=== PATIENT | male | born 2005 | race Caucasian/White ===

== ENCOUNTER 2025-01-30 21:35 | Observation (INO) ==
[2025-01-30] MEDS ORDERED: VANCOMYCIN CONSULT ACTIVE PRN (21:47)
--- NOTE | 2025-01-30 21:57 | Emergency Department Note ---
Impression & Plan Cellulitis of left elbow, Lymphangitis of upper extremity, Failure of outpatient treatment, Immunocompromised patient ED Provider Note NAME: MARJORIE MITCHELL AGE: 19 SEX: M : 2005 ARRIVES VIA: Walk-In INFORMANT: Patient ED PROVIDER(S): Cas Phoenix DO CHIEF COMPLAINT: Left elbow pain swelling and redness HPI: Patient is a 19-year-old male who presents to the ER for swelling and redness of the left elbow. He notes that he initially noticed the bump around his elbow around Thanksgiving. He notes it was red and he gradually got worse over the past several days. He notes over the past 24 hours the redness has significantly worsened and is streaking up to his armpit. He notes he had a cut as well but notes that this was old. Denies any dysuria, urgency or frequency. Has pain with movement of the elbow. No fevers. Was placed on Keflex and Bactrim yesterday but only took 1 days worth of antibiotics. ADDITIONAL HISTORY OBTAINED: Per HPI Chronic Medical/Social Conditions Affecting Care: Per HPI PAST MEDICAL HISTORY:See Below PAST SURGICAL HISTORY:See Below FAMILY HISTORY:See Below SOCIAL HISTORY:See Below HOME MEDICATIONS:See Below ALLERGIES:See Below VITALS:See Below PHYSICAL EXAMINATION: GENERAL: Sitting up in bed, alert, well appearing, well nourished, no distress, non-toxic EYE EXAM: normal conjunctiva. OROPHARYNX: no exudate, no erythema, lips, buccal mucosa, and tongue normal and mucous membranes are moist NECK: supple, no nuchal rigidity, no adenopathy, non-tender LUNGS: Clear to auscultation. Normal chest wall mechanics HEART: no murmurs, S1 normal and S2 normal ABDOMEN: abdomen soft, non-tender, normo-active bowel sounds, no masses, no rebound or guarding. UPPER EXTREMITIES: Significant erythema and swelling around the left elbow and streaking up to the armpit. Fullness and erythema over the medial aspect. Flexion extension is intact with mild to moderate amount of pain. LOWER EXTREMITIES: No pitting edema. NEURO EXAM: Normal sensorium, cranial nerves II-XII grossly intact, normal speech, no gross weakness of arms, no gross weakness of legs. MEDICAL DECISION MAKING: Patient is a 19-year-old male who presents ER for the above-stated complaint. IV was established and blood work was obtained. Labs show a leukocytosis of 14,000. No significant anemia. BMP along with LFTs, bilirubin, and lipase was unremarkable. Pro-Jeovany 0.14. Cultures were obtained. Patient was given IV Rocephin and IV vancomycin. He was updated at bedside. Discussed case with hospitalist for further evaluation management and treatment. Discussed with orthopedics initially and they recommended admission to the hospitalist and they will evaluate. Consults/Care Managements Discussions: Per MDM Triage Nursing notes reviewed. Limited review of prior medical records performed Vital Signs: reviewed and remarkable for no significant abnormalities Differential diagnosis: Cellulitis, abscess, MRSA infection, DVT, necrotizing fasciitis, dermatitis, drug eruption, allergic reaction, as well as other pathologies. ER treatment provided: See below Diagnostics interpreted by me include EKG and cardiac monitoring as listed below: -Cardiac Monitoring: An order was placed for continuous cardiac monitoring. The monitor shows a rate of 101 with sinus rhythm. -ECG: none -Laboratory studies:Interpreted by me as stated above in MDM and shown below. Imaging studies: Xrays: As interpreted by me: X-rays of the elbow show no acute fracture or dislocation CTs show: none Procedures:none Critical Care: None Past Med/Surg History Problem List (Updated 01/31/25 @ 00:43 by Cas Phoenix DO) Immunocompromised patient (Acute) Failure of outpatient treatment (Acute) Lymphangitis of upper extremity (Acute) Cellulitis of left elbow (Acute) Medical History Primary sclerosing cholangitis Ulcerative colitis Social History Smoking Status: Never smoker Preferred Language: American Feels Safe at Home: Yes Allergies Allergies Allergy/AdvReac Type Severity Reaction Status Date / Time sulfamethoxazole AdvReac Unknown CONTRAINDICATED Verified 01/30/25 22:18 [From Bactrim] WITH OTHER MEDICATIONS trimethoprim [From Bactrim] AdvReac Unknown CONTRAINDICATED Verified 01/30/25 22:18 WITH OTHER MEDICATIONS Home Meds Home Medications Medication Instructions Recorded Confirmed infliximab-dyyb 100 mg intravenous 0 mg IV .Q8 WKS 01/30/25 01/30/25 solution (Inflectra) Previous Rx's Medication Instructions Recorded cephalexin 500 mg capsule 500 mg PO QID 7 days #28 caps 01/29/25 tramadol 50 mg tablet 50 mg PO Q4H PRN pain #15 tabs 01/29/25 Results & Data (ED) Vital Signs Vital Signs - 24 hr 01/30/25 21:37 01/30/25 21:48 01/30/25 21:48 Temperature 36.7 C Temperature Source Temporal Artery Scan Pulse Rate 108 H 99 H Pulse Rhythm Regular Respiratory Rate 18 20 Respiratory Effort / Characteristics Non-Labored Non-Labored Respiratory Depth Normal Normal Blood Pressure 119/67 Blood Pressure Mean 84 Pulse Oximetry 96 98 Oxygen Delivery Method Room Air Room Air Sepsis Recent Fever Within 48 Hours No Sepsis New/Unexplained Change in Mental Status No Sepsis Action Taken by Nursing No Action Required 01/30/25 22:13 01/30/25 22:17 01/30/25 22:30 Temperature Temperature Source Pulse Rate 97 H 95 H 92 H Pulse Rhythm Respiratory Rate 20 18 Respiratory Effort / Characteristics Respiratory Depth Blood Pressure 121/68 112/71 Blood Pressure Mean 88 88 Pulse Oximetry 97 99 Oxygen Delivery Method Room Air Sepsis Recent Fever Within 48 Hours Sepsis New/Unexplained Change in Mental Status Sepsis Action Taken by Nursing Laboratory Data 01/30/25 21:56 01/30/25 21:56 Lab Results 01/30/25 Range/Units 21:56 WBC 14.16 H (4.8-10.8) K/ul RBC 4.52 L (4.70-6.10) M/uL Hgb 13.8 L (14.0-18.0) g/dL Hct 41.3 L (42.0-52.0) % MCV 91.4 (80.0-100.0) fL MCH 30.5 (25.0-34.0) pg MCHC 33.4 (32.0-36.0) g/dL RDW Std Deviation 41.5 (36.4-46.3) fL RDW Coeff of Alena 12.5 (11.5-14.5) % Plt Count 259 (130-400) K/uL MPV 10.1 (9.4-12.4) fL Immature Gran % (Auto) 0.4 % Neut % (Auto) 69.3 % Lymph % (Auto) 20.3 % [place] % (Auto) 7.6 % Eos % (Auto) 1.8 % Baso % (Auto) 0.6 % Neut # (Auto) 9.82 H (1.40-6.50) K/uL Lymph # (Auto) 2.87 (1.20-3.40) K/uL [place] # (Auto) 1.08 H (0.11-0.59) K/uL Eos # (Auto) 0.26 (0.00-0.50) K/uL Baso # (Auto) 0.08 (0.00-0.20) K/uL Immature Gran # (Auto) 0.05 (0.01-0.20) K/uL Sodium 140 (136-145) mmol/L Potassium 3.6 (3.5-5.1) mmol/L Chloride 107 (98-107) mmol/L Carbon Dioxide 23 (21-32) mmol/L Anion Gap 10 (3-11) BUN 15 (6-23) mg/dl Creatinine 0.94 (0.6-1.4) mg/dl Est Cr Clr Drug Dosing 130.5 ml/min eGFR 119.76 BUN/Creatinine Ratio 16.0 (10-20) Glucose 86 (70-99(Fasting)) mg/dl Calcium 8.8 (8.6-10.3) mg/dl Total Bilirubin 0.4 D (0.2-1.0) mg/dl AST 18 (13-39) U/L ALT 16 (7-52) U/L Alkaline Phosphatase 77 (34-104) U/L C-Reactive Protein 8.32 H (0-0.5) mg/dl Total Protein 8.3 (6.0-8.3) gm/dl Albumin 4.1 (3.4-5.0) gm/dl Globulin 4.2 H (2.5-4.0) gm/dl Albumin/Globulin Ratio 1.0 (0.9-2) Lipase 24 (11-82) U/L Procalcitonin 0.14 (0-0.5) ng/ml Administered Medications Discontinued Medications Acetaminophen (Acetaminophen 325 Mg Tab) 650 mg PO NOW STA Stop: 01/30/25 23:19 Last Admin: 01/30/25 23:37 Dose: 650 mg Documented By: JAMES Ceftriaxone Sodium (Rocephin) 2,000 mg in 50 mls @ 100 mls/hr IV NOW STA Stop: 01/30/25 22:16 Last Infusion: 01/30/25 22:46 Dose: Infused Documented By: Admin: 01/30/25 22:10 Dose: 100 mls/hr Documented By: MIGUEL ANGEL Vancomycin HCl 1,500 mg/ (Sodium Chloride) 530 mls @ 200 mls/hr IV NOW ONE Stop: 01/31/25 00:25 Last Admin: 01/30/25 22:38 Dose: 200 mls/hr Documented By: ECS Sodium Chloride (Nss) 1,000 mls @ 999 mls/hr IV .Q1H1M ONE Stop: 01/30/25 23:46 Last Admin: 01/30/25 23:04 Dose: 999 mls/hr Documented By: ECS Imaging Data Radiologist's Impression: Elbow X-Ray 01/30/25 21:49 Exam(s): XR LEFT ELBOW, 3+ views EXAM: XR Left Elbow Complete, 3 or More Views CLINICAL HISTORY: l elbow infection. TECHNIQUE: Frontal, lateral and oblique views of the left elbow. COMPARISON: No relevant prior studies available. FINDINGS: Bones/joints: No radiographic evidence for joint effusion. No acute osseous abnormality or abnormal alignment. No evidence for cortical destruction. Soft tissues: Soft tissue fullness suggested posteriorly. No radiopaque foreign body or subcutaneous emphysema. IMPRESSION: Soft tissue fullness suggested posteriorly. No radiopaque foreign body or subcutaneous emphysema. No acute osseous abnormality. Electronically signed by: Rolo Means MD 01/30/25 22:27 PM Discharge Plan Visit Data Chief Complaint: Elbow Injury/Pain Stated Complaint: LT ELBOW SWELLING AND PAIN PAST WK, HERE YEST ED Provider: Cas Phoenix Discharge Problem: Cellulitis of left elbow, Lymphangitis of upper extremity, Failure of outpatient treatment, Immunocompromised patient Patient Disposition: Admitted As Inpatient Condition: Fair Discharge Instructions Interventions: ED Discharge Assessment Last Done: 01/31/25 00:03
[2025-01-30] MEDS: cefTRIAXone SODIUM 2,000 MG/50 ML BAG IV STA (22:10)
[2025-01-30 22:17] LABS: Hematocrit (blood only) 41.3 % (42.0-52.0); Hemoglobin 13.8 g/dL (14.0-18.0); Immature Granulocytes # (auto) 0.05 K/uL (0.01-0.20); Immature Granulocytes % (auto) 0.4 %; Mean Corpuscular Hemoglobin 30.5 pg (25.0-34.0); Mean Corpuscular Volume 91.4 fL (80.0-100.0); Platelet Count 259 K/uL (130-400); RDW Standard Deviation 41.5 fL (36.4-46.3); Red Blood Count 4.52 M/uL (4.70-6.10); White Blood Count 14.16 K/ul (4.8-10.8)
--- NOTE | 2025-01-30 22:28 | XRay Report ---
Exam(s): XR LEFT ELBOW, 3+ views EXAM: XR Left Elbow Complete, 3 or More Views CLINICAL HISTORY: l elbow infection. TECHNIQUE: Frontal, lateral and oblique views of the left elbow. COMPARISON: No relevant prior studies available. FINDINGS: Bones/joints: No radiographic evidence for joint effusion. No acute osseous abnormality or abnormal alignment. No evidence for cortical destruction. Soft tissues: Soft tissue fullness suggested posteriorly. No radiopaque foreign body or subcutaneous emphysema. IMPRESSION: Soft tissue fullness suggested posteriorly. No radiopaque foreign body or subcutaneous emphysema. No acute osseous abnormality. Electronically signed by: Rolo Means MD 01/30/25 22:27 PM
[2025-01-30] MEDS: VANCOMYCIN HCL 1,500 MG in SODIUM CHLORIDE 0.9% 500 ML IV ONE (22:38)
[2025-01-30 22:39] LABS: Alanine Aminotransferase 16.0 U/L (7-52); Albumin Globulin Ratio 1.0 (0.9-2); Albumin Level 4.1 gm/dl (3.4-5.0); Alkaline Phosphatase 77.0 U/L (34-104); Anion Gap 10.0 (3-11); Bilirubin,Total 0.4 mg/dl (0.2-1.0); Blood Urea Nitrogen 15.0 mg/dl (6-23); Calcium 8.8 mg/dl (8.6-10.3); Carbon Dioxide 23.0 mmol/L (21-32); Chloride 107.0 mmol/L (98-107); Creatinine Clr Calc Pharmacy 130.5 ml/min; Globulin 4.2 gm/dl (2.5-4.0); Glucose 86.0 mg/dl (70-99(Fasting)); Lipase 24.0 U/L (11-82); Potassium 3.6 mmol/L (3.5-5.1); Sodium 140.0 mmol/L (136-145); Total Protein 8.3 gm/dl (6.0-8.3)
--- NOTE | 2025-01-30 23:02 | History & Physical Report ---
Date of Service January 30, 2025 Assessment & Plan (1) Cellulitis of left elbow: (2) Lymphangitis of upper extremity: (3) Immunocompromised patient: (4) Failure of outpatient treatment: Plan Patient is a 19-year-old [employer] student with a history of ulcerative colitis, primary sclerosing cholangitis, immunosuppressed status given on infliximab. Patient presented to the ED 01/29 due to worsening elbow pain and redness since Thanksgiving in which he was discharged on both Bactrim (noncompliance) and Keflex (took 12/6 AM x1) after being given Rocephin x 1 in the ED. Patient returned to the ED 01/30 as the redness has doubled in 24 hours and now has streaking up his arm. He is being admitted for left upper extremity cellulitis, lymphadenitis, failing outpatient oral antibiotic treatment with an immunocompromised status requiring IV antibiotics. #L UE cellulitis/lymphangitis/immunocompromised status/failed outpt tx - Elbow XR revealed soft tissue swelling. WBC 12.11 -> 14.16, with neutrophil predominance. - low concern for septic joint given ROM WNL - borders of erythema marked with surgical marker on admission, follow - CRP and procal ordered - continue Rocephin and vancomycin started in ED - pain control with Tylenol and Toradol prn - follow blood cultures - trend CBC and BMP with vanco use #tachycardia - likely 2/2 demand with acute infection. Resolved with IVF. - EKG ordered - NSR with sinus arrhythmia, rate 85 - 1L NSS bolus followed by LR @ 80ml/hr x 1 #ulcerative colitis - on infliximab q8 weeks, is due for repeat infusion however defer with acute infection. VTE ppx: SCDs, low risk Dispo: med surg Admission and Anticipated Discharge Date Admission Date: 01/30/25 History of Present Illness Chief Complaint: elbow pain Primary Care Provider: [facility] Patient is a 19-year-old [employer] student with a history of ulcerative colitis, primary sclerosing cholangitis, immunosuppressed status given on infliximab. Patient presented to the ED 01/29 due to worsening elbow pain and redness since Thanksgiving in which he was discharged on both Bactrim and Keflex after being given Rocephin x 1 in the ED. Patient returned to the ED 01/30 as the redness has doubled in 24 hours and now has streaking up his arm. He is being admitted for left upper extremity cellulitis, lymphadenitis, failing outpatient oral antibiotic treatment with an immunocompromise status requiring IV antibiotics. Patient seen at bedside. He stated he noticed an initial bump on his elbow Thanks or the day after and did not think much of it. Over 1 week he had worsening redness however no pain. this week it became very painful and significantly red so he came into the ER on Saturday. He received Rocephin, Toradol, tramadol in the ED and was discharged on Bactrim and Keflex. He only took Keflex this morning as he remembered he had Bactrim before and his doctors from home told him not to take this as it is hard on his liver with his liver condition, so he did not take the Bactrim today. Patient also noticed he had a scab on his elbow several weeks ago however does not remember any trauma to the area, he stated it had white drainage before all of this began, denies any current drainage. He denies any animal bites. The red bump that started on was slightly beside the scab (more proximal and medial). He denies any fevers, chills, chest pain, shortness of breath, nausea, vomiting, diarrhea. he occasionally uses Alverto nicotine pouches however declines need for nicotine patch, denies any vaping use. He occasionally drinks alcohol, denies daily use. He does not take any home medications daily. He has an infliximab treatment every 8 weeks, it has been about 8 weeks since his most recent treatment and he is about due however sometimes goes several weeks past when he is due. He wishes to be full code. Borders of erythema marked at time of admission. Allergies Allergy/AdvReac Type Severity Reaction Status Date / Time sulfamethoxazole AdvReac Unknown CONTRAINDICATED Verified 01/30/25 22:18 [From Bactrim] WITH OTHER MEDICATIONS trimethoprim [From Bactrim] AdvReac Unknown CONTRAINDICATED Verified 01/30/25 22:18 WITH OTHER MEDICATIONS Home Medications Medication Instructions Recorded Confirmed Type cephalexin 500 mg capsule 500 mg PO QID 7 days #28 caps 01/29/25 01/30/25 Rx tramadol 50 mg tablet 50 mg PO Q4H PRN pain #15 tabs 01/29/25 01/30/25 Rx infliximab-dyyb 100 mg intravenous 0 mg IV .Q8 WKS 01/30/25 01/30/25 History solution (Inflectra) Past Med/Surg History Problem List (Updated 01/31/25 @ 00:43 by Cas Phoenix DO) Immunocompromised patient (Acute) Failure of outpatient treatment (Acute) Lymphangitis of upper extremity (Acute) Cellulitis of left elbow (Acute) Medical History Primary sclerosing cholangitis Ulcerative colitis Social History Smoking Status: Current some day smoker Hx Alcohol Use: Yes Alcohol type: hard liquor Hx Substance Use: No Preferred Language: Thai Communication Ability: Effective Manager Of Housekeeping Required: No Beliefs That Will Affect Care: None Current Living Situation: Other Current Living Situation Comment: Boarding at [facility] Feels Safe at Home: Yes Safety Concerns: Feels Safe At This Time Review of Systems 2 Review of Systems: see HPI Physical Exam 2 Physical Exam: The patient is awake, alert and oriented 3, well developed and well nourished, normocephalic and atraumatic, in no acute distress. Non-toxic appearing. HEENT- EOMI, mucous membranes moist. Hearing grossly intact. Heart-normal S1 and S2. No murmurs, rubs or gallops. Lungs-clear bilaterally, no respiratory distress, no accessory muscle use. Abdomen-normal bowel sounds and soft. No ascites noted. Non-tender. Extremities- no clubbing, cyanosis, or edema. L UE - Healing wound of medial posterior elbow with surrounding erythema streaking proximally and anteriorly. Warm to touch. Rheumatologic-normal range of motion. Psychiatric-normal affect. Results & Data Results & Data Vital Signs (Past 12 Hours) Vital Signs Temp Pulse Resp BP Pulse Ox O2 Del Method 01/30/25 22:30 92 H 18 112/71 99 Room Air 01/30/25 22:17 95 H 01/30/25 22:13 97 H 20 121/68 97 01/30/25 21:48 99 H 20 98 Room Air 01/30/25 21:37 36.7 C 108 H 18 119/67 96 Room Air Laboratory Results Reviewed CBC, CMP, Pro-Jeovany, lipase Ordered CRP Diagnostic Findings reviewed elbow XR Medications Administered ed - Rocephin 2G IV, vancomycin IV ECG Additional Comments: ordered Code Status & VTE Plan Code Status full code VTE Prophylaxis Plan VTE Prophylaxis will be ordered: Yes Supervising Physician Co-Signing Physician Notes Attending addendum: I have physically seen this patient, have supervised the UMA's activities, and agree with the H&P unless as otherwise noted. Assessment and Plan: The patient is a 19-year-old male [employer] student with past medical history including ulcerative colitis, primary sclerosing cholangitis, and immunosuppressed state on infliximab. He initially presented to the emergency department on 01/29 due to worsening elbow pain and redness, initially began on Thanksgiving. He was given ceftriaxone x 1 in the ED on 01/29, and then discharged on Bactrim and Keflex, of which he only took Keflex. He returned to the ED on 01/30 due to worsening redness and pain, and streaking up developing up his arm. Patient is being admitted to [facility] with upper extremity cellulitis and ascending lymphangitis, and failure of outpatient treatment. Left upper extremity cellulitis/ascending lymphangitis/immunocompromise state/failure of outpatient treatment- X-ray of left elbow reveals soft tissue swelling, no bone involvement. Ceftriaxone 2 g IV every 24 hours Vancomycin IV per pharmacokinetic monitoring Acetaminophen 650 mg by mouth every 6 hours as needed for mild pain or fever Toradol 15 mg IV every 6 hours as needed from breakthrough pain. Follow-up blood cultures Serial CBC with differential and basic metabolic panel Sinus tachycardia Reactive Hydration with LR at 80 mL/h x 1 L, and encourage oral hydration Optimize potassium Ulcerative colitis- Immunocompromised on infliximab No symptoms at this time PG Care Time/CCT Total # of Minutes Spent Total Time Spent with Patient: Total time spent is greater than 50% in coordination of care (as documented) at patient's floor/unit and/or counseling patient: Coding Level of Care Code 24809 INT INP/OBS CARE 75MIN Diagnoses Cellulitis of left elbow L03.114 Lymphangitis of upper extremity I89.1 Immunocompromised patient D84.9 Failure of outpatient treatment Z78.9
[2025-01-30] MEDS: SODIUM CHLORIDE 0.9% 1,000 ML IV ONE (23:04)
[2025-01-30] MEDS: ACETAMINOPHEN 325 MG TAB PO STA (23:37)
[2025-01-31] MEDS ORDERED: MELATONIN 3 MG TAB PO PRN (00:31)
[2025-01-31] MEDS ORDERED: ONDANSETRON INJ 2 MG/ML 2 ML VIAL IV PRN (00:31)
[2025-01-31] MEDS ORDERED: DOCUSATE SODIUM 100 MG CAP PO PRN (00:31)
[2025-01-31] MEDS ORDERED: VANCOMYCIN CONSULT ACTIVE PRN (00:31)
[2025-01-31] MEDS: KETOROLAC TROMETHAMINE 15 MG/ML VIAL IV PRN (00:54)
[2025-01-31] MEDS: LACTATED RINGER'S 1,000 ML IV SCH (00:55)
[2025-01-31] MEDS: VANCOMYCIN HCL 1,750 MG in SODIUM CHLORIDE 0.9% 500 ML IV SCH (05:16)
[2025-01-31 06:49] LABS: Hematocrit (blood only) 37.7 % (42.0-52.0); Hemoglobin 12.2 g/dL (14.0-18.0); Immature Granulocytes # (auto) 0.04 K/uL (0.01-0.20); Immature Granulocytes % (auto) 0.4 %; Mean Corpuscular Hemoglobin 30.3 pg (25.0-34.0); Mean Corpuscular Volume 93.5 fL (80.0-100.0); Platelet Count 190 K/uL (130-400); RDW Standard Deviation 43.4 fL (36.4-46.3); Red Blood Count 4.03 M/uL (4.70-6.10); White Blood Count 10.20 K/ul (4.8-10.8)
[2025-01-31 07:30] LABS: Alanine Aminotransferase 12.0 U/L (7-52); Albumin Globulin Ratio 1.1 (0.9-2); Albumin Level 3.6 gm/dl (3.4-5.0); Alkaline Phosphatase 60.0 U/L (34-104); Anion Gap 8.0 (3-11); Bilirubin,Total 0.5 mg/dl (0.2-1.0); Blood Urea Nitrogen 13.0 mg/dl (6-23); Calcium 8.5 mg/dl (8.6-10.3); Carbon Dioxide 24.0 mmol/L (21-32); Chloride 109.0 mmol/L (98-107); Creatinine Clr Calc Pharmacy 148.9 ml/min; Globulin 3.3 gm/dl (2.5-4.0); Glucose 87.0 mg/dl (70-99(Fasting)); Potassium 4.1 mmol/L (3.5-5.1); Sodium 141.0 mmol/L (136-145); Total Protein 6.9 gm/dl (6.0-8.3)
--- NOTE | 2025-01-31 08:27 | Hospitalist Progress Note ---
Date of Service January 31, 2025 Assessment & Plan (1) Cellulitis of left elbow: (2) Lymphangitis of upper extremity: (3) Immunocompromised patient: (4) Failure of outpatient treatment: Plan Patient is a 19-year-old [employer] student with a history of ulcerative colitis, primary sclerosing cholangitis, immunosuppressed status given on infliximab. Patient presented to the ED 01/29 due to worsening elbow pain and redness since Thanksgiving in which he was discharged on both Bactrim (noncompliance) and Keflex (took 12/6 AM x1) after being given Rocephin x 1 in the ED. Patient returned to the ED 01/30 as the redness has doubled in 24 hours and now has streaking up his arm. He is being admitted for left upper extremity cellulitis, lymphadenitis, failing outpatient oral antibiotic treatment with an immunocompromised status requiring IV antibiotics. #L UE cellulitis/lymphangitis/immunocompromised status/failed outpt tx - Elbow XR revealed soft tissue swelling. WBC 12.11 -> 14.16, with neutrophil predominance. Low concern for septic joint w ROM WNL CRP and procal ordered, CRP 8.3, procal 0.14 Blood cx pending from admission Continues on Ceftriaxone, Vancomycin in ER Benadryl x 1 for itchiness. Monitor for any respiratory/worsening issues but reports was on Vanco in the past Toradol, Tylenol for pain control Continued inpatient stay on antibiotics while monitoring blood cultures and if continued improvement can dc on PO abx in AM. #tachycardia - likely 2/2 demand with acute infection. Resolved with IVF. EKG w/ sinus arrhythmia, rate 85. Provided with IVF, can dc after current bag. No CP/SOB and HR now normalized w/ tx #ulcerative colitis - on infliximab q8 weeks, is due for repeat infusion however defer with acute infection. He reports he is to be getting an infusion this upcoming week VTE ppx: SCDs, low risk Dispo: continued inpatient stay on IV abx/monitoring blood cultures and hopeful dc AM 12/8 on PO abx if blood cx remain negative. Will need school note. Admission and Anticipated Discharge Date Admission Date: January 30, 2025 Subjective Evaluated this morning, doing well. Some redness/warmth/itchiness to face. Discussed benadryl but to alert if any respiratory symptoms. Redness/pain much improved. He notes he got medication last evening in the IV - will have nursing provide additional dose of toradol today. Discussed discharge disposition, he is to be getting his infusion for UC this upcoming week. Discussed given immunocompromised status would prefer additional 24hr of IV abx and can plan for dc early AM. Patient agreeable to plan. Review of Systems 2 Review of Systems: All systems reviewed & are unremarkable except as noted in HPI & below Physical Exam 2 Physical Exam: General: 19yo male resting in bed, NAD HEENT: slight redness to the face, no stridor or hoarseness Resp: clear bilaterally, no w/c/r, on room air CV: RRR, no significant m/r/g, pulses present GI: +BS, soft/NT ; no arango MSK/Neuro: moves all extremities, L elbow with scab, redness within markings, ROM intact but slightly decreased at the extremes, slight edema, no overt tenderness or fluctuance. no further streaking proximally Psych: AOx3, cooperative Results & Data Results & Data Vital Signs (Past 12 Hours) Vital Signs Temp Pulse Pulse Pulse Resp BP BP 01/31/25 07:08 36.3 C L 64 16 105/62 01/31/25 00:35 01/31/25 00:20 37.1 C 81 16 122/70 01/30/25 23:35 95 H 24 105/57 L 01/30/25 22:30 92 H 18 112/71 01/30/25 22:17 95 H 01/30/25 22:13 97 H 20 121/68 01/30/25 21:48 99 H 20 01/30/25 21:37 36.7 C 108 H 18 119/67 Pulse Ox O2 Del Method 01/31/25 07:08 98 Room Air 01/31/25 00:35 Room Air 01/31/25 00:20 99 Room Air 01/30/25 23:35 97 Room Air 01/30/25 22:30 99 Room Air 01/30/25 22:17 01/30/25 22:13 97 01/30/25 21:48 98 Room Air 01/30/25 21:37 96 Room Air Laboratory Results 01/31/25 06:35 01/31/25 06:35 CRP 8.3 Procal 0.14 Diagnostic Findings Elbow X-Ray 01/30/25 21:49 Exam(s): XR LEFT ELBOW, 3+ views EXAM: XR Left Elbow Complete, 3 or More Views CLINICAL HISTORY: l elbow infection. TECHNIQUE: Frontal, lateral and oblique views of the left elbow. COMPARISON: No relevant prior studies available. FINDINGS: Bones/joints: No radiographic evidence for joint effusion. No acute osseous abnormality or abnormal alignment. No evidence for cortical destruction. Soft tissues: Soft tissue fullness suggested posteriorly. No radiopaque foreign body or subcutaneous emphysema. IMPRESSION: Soft tissue fullness suggested posteriorly. No radiopaque foreign body or subcutaneous emphysema. No acute osseous abnormality. Electronically signed by: Rolo Means MD 01/30/25 22:27 PM PG Care Time/CCT Total # of Minutes Spent Total Time Spent with Patient: Total time spent is greater than 50% in coordination of care (as documented) at patient's floor/unit and/or counseling patient: Coding Level of Care Code 55544 SUB INP/OBS CARE 2/35MIN Diagnoses Cellulitis of left elbow L03.114 Lymphangitis of upper extremity I89.1 Immunocompromised patient D84.9 Failure of outpatient treatment Z78.9
[2025-01-31] MEDS: diphenhydrAMINE 50 MG/ML VIAL IV STA (08:31)
[2025-01-31] MEDS ORDERED: VANCOMYCIN HCL 1,000 MG in SODIUM CHLORIDE 0.9% 250 ML IV SCH (09:00)
--- NOTE | 2025-01-31 09:48 | Pharmacy Report ---
Pharmacy PK ABX Note - Date of Service January 31, 2025 - Assessment and Plan Assessment 19 year old M receiving vancomycin and ceftriaxone for treatment of left elbow cellulitis. History of ulcerative colitis on infliximab and primary sclerosing cholangitis, immunocompromised at baseline. Prescribed Bactrim (non-compliant) and Keflex after being seen in the ED on 01/29 and now worsening redness and streaking up the arm. Blood cultures pending. Renal function stable. Day #2 of antimicrobial therapy. Plan Vancomycin * Vanc 1500mg IV X 1 in the ED followed by a 1750mg dose this AM * Maintenance dose: 1250 mg IV every 8 hours * Regimen is predicted to achieve target AUC/GAURANG of 400-600 mg/L.hr * Trough tomorrow AM Pharmacy will continue to follow and will adjust dose/frequency as necessary. Thank you. Pharmacy has transitioned to AUC monitoring for vancomycin. AUC/GAURANG is the preferred PK/PD target and is associated with decreased risk of nephrotoxicity compared to traditional trough targets.
[2025-01-31] MEDS: VANCOMYCIN HCL 1,250 MG in SODIUM CHLORIDE 0.9% 250 ML IV SCH (14:51)
[2025-01-31] MEDS: cefTRIAXone SODIUM 2,000 MG/50 ML BAG IV SCH (20:28)
[2025-01-31] MEDS: diphenhydrAMINE Capsule 25 MG CAP PO PRN (22:28)
[2025-01-31 23:08] VITALS: RESP 16
[2025-01-31] MEDS: KETOROLAC TROMETHAMINE 15 MG/ML VIAL IV ONE (23:23)
--- NOTE | 2025-02-01 01:38 | Electrocardiogram Report ---
Test Reason : Blood Pressure : */* mmHG Vent. Rate : 85 BPM Atrial Rate : 85 BPM P-R Int : 160 ms QRS Dur : 94 ms QT Int : 344 ms P-R-T Axes : 48 59 40 degrees QTcB Int : 409 ms Normal sinus rhythm with sinus arrhythmia Normal ECG No previous ECGs available Confirmed by Anahy Momin (Neftali) on 02/01/2025 1:38:22 AM Referred By: REFERRED SELF Confirmed By: Anahy Momin
[2025-02-01 06:24] LABS: Hematocrit (blood only) 35.3 % (42.0-52.0); Hemoglobin 11.7 g/dL (14.0-18.0); Mean Corpuscular Hemoglobin 31.0 pg (25.0-34.0); Mean Corpuscular Volume 93.4 fL (80.0-100.0); Platelet Count 193 K/uL (130-400); RDW Standard Deviation 42.9 fL (36.4-46.3); Red Blood Count 3.78 M/uL (4.70-6.10); White Blood Count 8.95 K/ul (4.8-10.8)
[2025-02-01 06:40] LABS: Anion Gap 5.0 (3-11); Blood Urea Nitrogen 8.0 mg/dl (6-23); Calcium 8.8 mg/dl (8.6-10.3); Carbon Dioxide 27.0 mmol/L (21-32); Chloride 109.0 mmol/L (98-107); Creatinine Clr Calc Pharmacy 130.5 ml/min; Glucose 91.0 mg/dl (70-99(Fasting)); Potassium 4.4 mmol/L (3.5-5.1); Sodium 141.0 mmol/L (136-145)
[2025-02-01] MEDS: VANCOMYCIN LEVEL ONE (06:48)
[2025-02-01] MEDS: KETOROLAC TROMETHAMINE 15 MG/ML VIAL IV PRN (07:36)
--- NOTE | 2025-02-01 07:52 | Pharmacy Report ---
Pharmacy PK ABX Note - Date of Service February 01, 2025 - Assessment and Plan Assessment 02/01 * Vancomycin random level this AM ~9.3 mcg/ml - current regimen is predicted to achieve goal AUC/GAURANG therefore will continue same dose. 01/31 * 19 year old M receiving vancomycin and ceftriaxone for treatment of left elbow cellulitis. History of ulcerative colitis on infliximab and primary sclerosing cholangitis, immunocompromised at baseline. Prescribed Bactrim (non-compliant) and Keflex after being seen in the ED on 01/29 and now worsening redness and streaking up the arm. Blood cultures pending. Renal function stable. * Day #2 of antimicrobial therapy. Plan Vancomycin * Continue 1250 mg iv q 8 hours Pharmacy will continue to follow and will adjust dose/frequency as necessary. Thank you. Pharmacy has transitioned to AUC monitoring for vancomycin. AUC/GAURANG is the preferred PK/PD target and is associated with decreased risk of nephrotoxicity compared to traditional trough targets.
[2025-02-01] MEDS: ACETAMINOPHEN 325 MG TAB PO PRN (12:39)
--- NOTE | 2025-02-01 15:55 | Hospitalist Progress Note ---
Date of Service February 01, 2025 Assessment & Plan (1) Cellulitis of left elbow: Plan: Left elbow area cellulitis has responded to Rocephin and vancomycin, day 3. Erythema has receded from outline drawn by nursing staff on admission (2) Olecranon bursitis, left elbow: Plan: Fluctuant very tender area overlying the left olecranon bursa. It appears incision and drainage is indicated. Orthopedic consultation requested (3) Immunocompromised patient: Plan: He takes medication for his ulcerative colitis history that has resulted in an immunocompromised state. Plan Hopeful discharge to home in 1 to 2 days pending orthopedic evaluation and subsequent incision and drainage of left olecranon bursitis. Admission and Anticipated Discharge Date Admission Date: February 01, 2025 Subjective Cellulitic erythema involving the left elbow area has receded but he has what appears to be olecranon bursitis that would benefit from incision and drainage procedure. Orthopedic consultation requested and pending. He remains on intravenous Rocephin and cefepime, day 3. He is admitted from observation status. Blood cultures obtained on admission remain negative. Review of Systems 2 Review of Systems: Constitutionalno fever or chills ENTno blurred vision, no double vision, no epistaxis, no sore throat Respiratoryno cough, no wheezing, no shortness of breath Cardiacno palpitations, no chest pain, no syncope Raissa nausea, vomiting, diarrhea, melena, hematochezia GUno urinary retention, no urinary incontinence, no dysuria, no hematuria Musculoskeletalleft elbow discomfort and limited range of motion. No muscle tenderness Skinno bruising, no rashes, no pruritus Neurono isolated weakness, no paresthesia, no weakness Psychno depression, no anxiety Physical Exam 2 Physical Exam: General-alert and oriented x3, no fever, no chills HEENT-head atraumatic and normocephalic, pupils equal and reactive to light, extraocular muscles intact Neck-no lymphadenopathy or thyromegaly, trachea midline Chest-clear to auscultation. No rales, wheezing or rhonchi Cardiac-regular rate and rhythm, normal S1 and S2 Abdomen-normal bowel sounds, no hepatosplenomegaly Extremities-left elbow area erythema has receded from the outline drawn by nursing staff. He does have a very tender fluctuant area over the olecranon bursa which appears to be amenable to I&D procedure. Neuro-cranial nerves II through XII intact, motor and sensory function within normal limits, strength symmetrical, no focal deficits Psych-normal affect, normal mood Results & Data Results & Data Vital Signs (Past 12 Hours) Vital Signs Temp Pulse Resp BP Pulse Ox O2 Del Method 02/01/25 15:15 36.3 C L 54 L 16 111/59 L 99 Room Air 02/01/25 07:27 36.4 C L 59 L 16 103/63 98 Room Air Laboratory Results 02/01/25 06:12 02/01/25 06:12 PG Care Time/CCT Total # of Minutes Spent Total Time Spent with Patient: Total time spent is greater than 50% in coordination of care (as documented) at patient's floor/unit and/or counseling patient: Coding Level of Care Code 01115 SUB INP/OBS CARE 3/50MIN Diagnoses Cellulitis of left elbow L03.114 Olecranon bursitis, left elbow M70.22 Immunocompromised patient D84.9
[2025-02-01] MEDS: ETHYL CHLORIDE AER PER SPRAY 100 ML CAN EXT ONE (16:06)
--- NOTE | 2025-02-01 16:20 | Orthopedic Consultation ---
Date of Service February 01, 2025 Assessment & Plan (1) Abscess of left upper extremity: * Case/imaging reviewed and discussed with Dr Ballesteros * Recommend aspiration of abscess and send for culture, will reevaluate in AM for possible OR if aspirating did not improve symptoms. NPO after midnight. Keep wrapped with tali bandage for compression. * Disposition: TBD * Daily treatment: Physical Therapy/ Occupational Therapy per protocol * Weight bearing status: as tolerated * Pain control * Remainder care per primary team * Continue IV antibiotics. History of Present Illness Reason for Consultation: 1) Cellulitis of left elbow: (2) Lymphangitis of upper extremity: (3) Immunocompromised patient: (4) Failure of outpatient treatment: Requesting Physician: . Attending Physician: Kyle Christina MD .Patient is a 19 y/o male with left upper extremity pain, redness and swelling. PMH including ulcerative colitis, primary sclerosing cholangitis, immunosuppressed status given on infliximab. Presents to hospital with Left elbow pain, redness and swelling. Pt was previous seen in ED on ans was discharged with both Bactrim and Keflexleft upper extremity cellulitis, lymphadenitis, failing outpatient oral antibiotic treatment with an immunocompromised status requiring IV antibiotics. Current workup including elbow XR and labs. Orthopedics consulted for management recommendations. At time of exam patient was lying in bed with pain in left elbow. Allergies Allergy/AdvReac Type Severity Reaction Status Date / Time sulfamethoxazole AdvReac Unknown CONTRAINDICATED Verified 01/30/25 22:18 [From Bactrim] WITH OTHER MEDICATIONS trimethoprim [From Bactrim] AdvReac Unknown CONTRAINDICATED Verified 01/30/25 22:18 WITH OTHER MEDICATIONS Home Medications Medication Instructions Recorded Confirmed Type cephalexin 500 mg capsule 500 mg PO QID 7 days #28 caps 01/29/25 01/30/25 Rx tramadol 50 mg tablet 50 mg PO Q4H PRN pain #15 tabs 01/29/25 01/30/25 Rx infliximab-dyyb 100 mg intravenous 0 mg IV .Q8 WKS 01/30/25 01/30/25 History solution (Inflectra) Past Med/Surg History Problem List (Updated 02/01/25 @ 16:15 by Ghazala Ahumada PA-C) Abscess of left upper extremity Olecranon bursitis, left elbow Immunocompromised patient (Acute) Failure of outpatient treatment (Acute) Lymphangitis of upper extremity (Acute) Cellulitis of left elbow (Acute) Medical History Primary sclerosing cholangitis Ulcerative colitis Social History Smoking Status: Current some day smoker Hx Alcohol Use: Yes Alcohol type: hard liquor Hx Substance Use: No Preferred Language: Czech Communication Ability: Effective Upper And Bottom Lacer Hand Required: No Beliefs That Will Affect Care: None Current Living Situation: Other Current Living Situation Comment: Boarding at [facility] Feels Safe at Home: Yes Safety Concerns: Feels Safe At This Time Review of Systems All systems reviewed & are unremarkable except as noted in HPI & below. Physical Exam * General: Alert and oriented, no acute distress * Constitutional: well-developed, well-nourished. * Respiratory: Normal respiratory effort, no distress * Gastrointestinal: No tenderness to palpation, no rigidity or guarding. * Skin: No rash or lesion. * Neurologic: Grossly normal * Musculoskeletal: Left elbow without irritability. patient has 3 cm in diameter area of fluctuance along medial aspect of left elbow. No joint effusion or bursitis. Erythema is greatly improved from demarcated area with pen. Tenderne ss and erythema is localized to area of abscess and fluctance. * Procedure: Left upper extremity abscess aspiration. Skin was cleansed using isopropyl alcohol. An 18 gauge needle was then use to aspirate 6 mL of purulent fluid from area of fluctuance along medial aspect of left elbow. Area was covered with gauze and 4" tali bandage. Results & Data Results & Data Laboratory Results . Laboratory Results - last 24 hr 02/01/25 06:12 WBC 8.95 RBC 3.78 L Hgb 11.7 L Hct 35.3 L MCV 93.4 MCH 31.0 MCHC 33.1 RDW Std Deviation 42.9 RDW Coeff of Alena 12.5 Plt Count 193 MPV 10.2 Sodium 141 Potassium 4.4 Chloride 109 H Carbon Dioxide 27 Anion Gap 5 BUN 8 Creatinine 0.97 Est Cr Clr Drug Dosing 130.5 eGFR 115.33 BUN/Creatinine Ratio 8.2 L Glucose 91 Calcium 8.8 C-Reactive Protein 4.72 H Random Vancomycin 9.3 L Diagnostic Findings Elbow X-Ray 01/30/25 21:49 Exam(s): XR LEFT ELBOW, 3+ views EXAM: XR Left Elbow Complete, 3 or More Views CLINICAL HISTORY: l elbow infection. TECHNIQUE: Frontal, lateral and oblique views of the left elbow. COMPARISON: No relevant prior studies available. FINDINGS: Bones/joints: No radiographic evidence for joint effusion. No acute osseous abnormality or abnormal alignment. No evidence for cortical destruction. Soft tissues: Soft tissue fullness suggested posteriorly. No radiopaque foreign body or subcutaneous emphysema. IMPRESSION: Soft tissue fullness suggested posteriorly. No radiopaque foreign body or subcutaneous emphysema. No acute osseous abnormality. Electronically signed by: Rolo Means MD 01/30/25 22:27 PM . PG Care Time/CCT Total # of Minutes Spent Total Time Spent with Patient: Total time spent is greater than 50% in coordination of care (as documented) at patient's floor/unit and/or counseling patient: [place] [address] IN/OBS CONSULT LVL 3,45M Patient Type New Diagnoses Abscess of left upper extremity L02.414 CPT Codes ABSCESS - 98157 ([id number])
[2025-02-01 22:24] VITALS: O2SAT 97
[2025-02-02 07:18] LABS: Hematocrit (blood only) 36.4 % (42.0-52.0); Hemoglobin 12.3 g/dL (14.0-18.0); Immature Granulocytes # (auto) 0.03 K/uL (0.01-0.20); Immature Granulocytes % (auto) 0.4 %; Mean Corpuscular Hemoglobin 30.8 pg (25.0-34.0); Mean Corpuscular Volume 91.2 fL (80.0-100.0); Platelet Count 230 K/uL (130-400); RDW Standard Deviation 40.4 fL (36.4-46.3); Red Blood Count 3.99 M/uL (4.70-6.10); White Blood Count 8.45 K/ul (4.8-10.8)
[2025-02-02 07:22] VITALS: BP 105/66; PULSE 54; TEMP 97.5
[2025-02-02 08:02] LABS: Anion Gap 7.0 (3-11); Blood Urea Nitrogen 8.0 mg/dl (6-23); Calcium 8.9 mg/dl (8.6-10.3); Carbon Dioxide 26.0 mmol/L (21-32); Chloride 108.0 mmol/L (98-107); Creatinine Clr Calc Pharmacy 129.1 ml/min; Glucose 86.0 mg/dl (70-99(Fasting)); Potassium 3.8 mmol/L (3.5-5.1); Sodium 141.0 mmol/L (136-145)
--- NOTE | 2025-02-02 09:10 | Orthopedic Progress Note ---
Date of Service February 02, 2025 Assessment & Plan (1) Abscess of left upper extremity: * Case/imaging reviewed and discussed with Dr Ballesteros * Aspirated abscess yesterday with positive Gram + cocci, cultures pending. Keep wrapped with tali bandage for compression. * Disposition: TBD * Daily treatment: Physical Therapy/ Occupational Therapy per protocol * Weight bearing status: as tolerated * Pain control * Remainder care per primary team * Continue IV antibiotics. Await culture results and tailor accordingly. Pt would like to sign out as he has a commitment at 12:20 today he can not miss. Discussed the possibility of recurrence or need to drain further also awaiting culture results. Subjective Active Problems: S/p left elbow abscess aspiration 02/01 19 y/o male s/p left elbow abscess aspiration 02/01/25. Doing well overall, pain managed and improved function. Denies fever/chills, chest pain/SOB, naus ea/vomiting. Otherwise no complaints. Pt states he has a class today at 12:20 is can not miss and does not wish to have any further proceeds or stay in the hospital. Pt is aware he may need to return or have abscess drained further. . Review of Systems All systems reviewed & are unremarkable except as noted in HPI & below. Physical Exam . * General: Alert and oriented, no acute distress * Constitutional: well-developed, well-nourished. * Respiratory: Normal respiratory effort, no distress * Gastrointestinal: No tenderness to palpation, no rigidity or guarding. * Skin: No rash or lesion. * Neurologic: Grossly normal * Musculoskeletal: Left elbow without irritability. patient has 3 cm in diameter area of dry flaky skin with some fluctuance along medial aspect of left elbow, but deflated compared to yesterday.. No joint effusion or bursitis. Erythema is greatly improved from demarcated area with pen and around abscess. Tenderness and erythema is localized to area of abscess. Results & Data Results & Data Laboratory Results . Laboratory Results - last 24 hr 02/02/25 06:58 WBC 8.45 RBC 3.99 L Hgb 12.3 L Hct 36.4 L MCV 91.2 MCH 30.8 MCHC 33.8 RDW Std Deviation 40.4 RDW Coeff of Alena 12.0 Plt Count 230 MPV 10.3 Immature Gran % (Auto) 0.4 Neut % (Auto) 57.7 Lymph % (Auto) 29.8 [place] % (Auto) 7.5 Eos % (Auto) 4.0 Baso % (Auto) 0.6 Neut # (Auto) 4.88 Lymph # (Auto) 2.52 [place] # (Auto) 0.63 H Eos # (Auto) 0.34 Baso # (Auto) 0.05 Immature Gran # (Auto) 0.03 Sodium 141 Potassium 3.8 Chloride 108 H Carbon Dioxide 26 Anion Gap 7 BUN 8 Creatinine 0.98 Est Cr Clr Drug Dosing 129.1 eGFR 113.92 BUN/Creatinine Ratio 8.2 L Glucose 86 Calcium 8.9 Gram Stain Final 02/01/25-1824 Gram Stain Result Many WBCs Seen Few Gram Positive Cocci Culture pending Diagnostic Findings . PG Care Time/CCT Total # of Minutes Spent Total Time Spent with Patient: Total time spent is greater than 50% in coordination of care (as documented) at patient's floor/unit and/or counseling patient: Coding [place] [address] SUB INP/OBS CARE 2/35MIN Patient Type Established Diagnoses Abscess of left upper extremity L02.414
--- NOTE | 2025-02-02 09:30 | Discharge Summary ---
Discharge Summary Date of Service February 02, 2025 Principal Dx & Hospital Course #1 = Principal Diagnosis (1) Cellulitis of left elbow: Left elbow area cellulitis has responded to Rocephin and vancomycin, day 4. Erythema has receded from outline drawn by nursing staff on admission. He will take oral Keflex and Bactrim as previously prescribed at discharge (2) Olecranon bursitis, left elbow: Appreciate orthopedic evaluation and treatment. He had aspiration procedure done yesterday, February 01. Gram stain reveals many white blood cells and few gram-positive cocci. Final culture results remain pending. He was seen today by orthopedic surgery and they will follow-up as an outpatient in 1 week. He is aware that further surgical intervention may be needed on the left olecranon bursa. (3) Immunocompromised patient: He takes medication for his ulcerative colitis history that has resulted in an immunocompromised state. Plan The patient wants to be discharged today, February 02, so he can attend his classes at [employer] without interruption. He states he already has prescriptions for cephalexin and Bactrim DS. He will follow-up with orthopedics as an outpatient in 1 week. He was instructed to return to the ED if his left elbow condition worsens Admission HPI Per Admitting Provider Patient is a 19-year-old [employer] student with a history of ulcerative colitis, primary sclerosing cholangitis, immunosuppressed status given on infliximab. Patient presented to the ED 01/29 due to worsening elbow pain and redness since in which he was discharged on both Bactrim and Keflex after being given Rocephin x 1 in the ED. Patient returned to the ED 01/30 as the redness has doubled in 24 hours and now has streaking up his arm. He is being admitted for left upper extremity cellulitis, lymphadenitis, failing outpatient oral antibiotic treatment with an immunocompromise status requiring IV antibiotics. Patient seen at bedside. He stated he noticed an initial bump on his elbow or the day after and did not think much of it. Over 1 week he had worsening redness however no pain. this week it became very painful and significantly red so he came into the ER on Saturday. He received Rocephin, Toradol, tramadol in the ED and was discharged on Bactrim and Keflex. He only took Keflex this morning as he remembered he had Bactrim before and his doctors from home told him not to take this as it is hard on his liver with his liver condition, so he did not take the Bactrim today. Patient also noticed he had a scab on his elbow several weeks ago however does not remember any trauma to the area, he stated it had white drainage before all of this began, denies any current drainage. He denies any animal bites. The red bump that started on Thanksgiving was slightly beside the scab (more proximal and medial). He denies any fevers, chills, chest pain, shortness of breath, nausea, vomiting, diarrhea. he occasionally uses Alverto nicotine pouches however declines need for nicotine patch, denies any vaping use. He occasionally drinks alcohol, denies daily use. He does not take any home medications daily. He has an infliximab treatment every 8 weeks, it has been about 8 weeks since his most recent treatment and he is about due however sometimes goes several weeks past when he is due. He wishes to be full code. Borders of erythema marked at time of admission. Discharge Exam General-alert and oriented x3, no fever, no chills HEENT-head atraumatic and normocephalic, pupils equal and reactive to light, extraocular muscles intact Neck-no lymphadenopathy or thyromegaly, trachea midline Chest-clear to auscultation. No rales, wheezing or rhonchi Cardiac-regular rate and rhythm, normal S1 and S2 Abdomen-normal bowel sounds, no hepatosplenomegaly Extremities-left elbow area erythema has receded from the outline drawn by nursing staff. Neuro-cranial nerves II through XII intact, motor and sensory function within normal limits, strength symmetrical, no focal deficits Psych-normal affect, normal mood Discharge Plan Discharge Items Patient Disposition: Home - Self-Care Reason For Visit: CELLULITIS, LYMPHAGNITIS, FAILED ORAL ABX, IMMUNOC Discharge Diagnosis: Left upper extremity cellulitis, left olecranon septic bursitis Condition on Discharge: Good Goals: You have been hospitalized for an acute medical problem. During your stay at [facility], we have made an effort to correct the problem that brought you to the hospital while keeping you as comfortable as possible. Medications were used to bring your condition under control and your discharge instructions will include directions for any medications you should take after leaving the hospital. Please make sure you see your Primary Care Provider as part of your follow up plan. Activity: As commented below Non-emergency contact: Primary Care Provider Call non-emergency contact if: you have any medication questions, your symptoms worsen, your pain is not controlled, your pain is worsening, your pain is concerning for you, you have a fever and your wound has increased redness Follow-up/Referrals: [place] [Primary Care Provider] - Diet: Regular Addtl Attending Provider Instructions: You have been hospitalized for cellulitis of the elbow after failure/worsening with outpatient antibiotics. Given immunocompromised state with your ulcerative colitis, blood cultures were obtained on admission and have been negative however it was suspected that you may have required several doses of IV antibiotics before continuing with oral antibiotics. Your white blood count has decreased and normalized and your cellulitis is much improved. At discharge, it is recommended to continue the bactrim as well as keflex for 7- 10 days to complete the course. Your liver enzymes were normal and this antibiotic is good at coverage for any possible MRSA infection. Please continue to keep the extremity elevated and follow up with primary care/[facility] in the next 7-10 days to monitor your progress. Take both Bactrim (trimethoprim/sulfamethoxazole) twice daily and Keflex (cephalexin) 500 mg 4 times daily as directed. Return to ED immediately if left elbow symptoms worsen Pending Studies at Discharge: Yes Studies:: Final culture results from left olecranon bursa aspiration Stand-Alone Forms: My [facility], Work/School Release, Smoking Cessation Medications and DC Order Prescriptions: New sulfamethoxazole-trimethoprim [Bactrim DS] 800-160 mg tablet 1 tab PO BID Qty: 1 0RF Continued cephalexin 500 mg capsule 500 mg PO QID 7 Days Qty: 28 0RF Rx Instructions: STARTED 01/30/25 FOR 7 DAYS tramadol 50 mg tablet 50 mg PO Q4H PRN (Reason: pain) Qty: 15 0RF Rx Instructions: No more than 5 pills daily Inflectra 100 mg recon soln 0 mg IV .Q8 WKS Rx Instructions: intravenously ;Infuse 10mg/kg intravenously [id number]; Discharge Orders: Discharge Order (Routine); Ordered 02/02/25 Ordered By: Kyle Christina Admission Data Admit Date/Time: 02/01/25 08:35 Attending Provider: Sanford,Kyle R. Admit Provider: Kyle Christina Primary Care Provider: [facility] Other Providers: Nick Negrete; Ziggy Ballesteros; Candie Carbone; Ayaz Marie; Cait Kaiser; Elma Godoy; Brian Yuan; Geovanny Han; Cas Arciniega; Cori Barry; Torin Rodrigues; Ghazala Ahumada; Tho Mackey; Fanta Schwab; Taylor Peterson; Gonsalo Castro; Kvng Ellison; Melanie Enrique; Chuyita Mancilla; Didi Streeter; Milady Boyle; Manisha Cook; Ziggy Dennis; Kvng Ahumada; Anahy Benjamin; Taina Ramírez Hospital Stay Data Consultations 01/30/25 22:32 ED Decision to Admit Stat 02/01/25 08:35 Consult Orthopedic Surgery Routine Pending Results Patient Have Any Pending Studies at Discharge: Yes Discharge Instructions Given to Patient (Per Discharging Provider) You have been hospitalized for cellulitis of the elbow after failure/worsening with outpatient antibiotics. Given immunocompromised state with your ulcerative colitis, blood cultures were obtained on admission and have been negative however it was suspected that you may have required several doses of IV antibiotics before continuing with oral antibiotics. Your white blood count has decreased and normalized and your cellulitis is much improved. At discharge, it is recommended to continue the bactrim as well as keflex for 7- 10 days to complete the course. Your liver enzymes were normal and this antibiotic is good at coverage for any possible MRSA infection. Please continue to keep the extremity elevated and follow up with primary care/[facility] in the next 7-10 days to monitor your progress. Take both Bactrim (trimethoprim/sulfamethoxazole) twice daily and Keflex (cephalexin) 500 mg 4 times daily as directed. Return to ED immediately if left elbow symptoms worsen Total Time Total Time Spent Total Time Spent (In Minutes): 45 minutes. Total time included patient exam, discharge planning, medication reconciliation, and communication with other providers. Coding Level of Care Code 04533 INP/OBS DISCH >30 MIN Diagnoses Cellulitis of left elbow L03.114 Olecranon bursitis, left elbow M70.22 Immunocompromised patient D84.9
== END 2025-02-02 11:10 | disposition home or self-care (01) ==
LOC: ED 21:35 → 3N 21:35 → SUATTDRO 23:13 → 3N 01-31 00:03